=== PATIENT | male | born 1980 | race Caucasian/White ===

== ENCOUNTER 2017-06-15 05:27 | Day surgery (SDC) | payer BC, OTHER ==
[~2017-06-15] VITALS: Ht 188 cm; Wt 102.1 kg
--- NOTE | ~2017-06-15 | O ---
[facility] [place] [address] OPERATIVE REPORT Name: MADAY CHATTERJEE Room #: 150-11 [facility] M.R.#: [id number] Admission: 06/15/17 Attend Phys: Pk Hoover MD Discharge: Date of : 84 Report #: [id number] THIS REPORT FOR: //name// CC: FAM unknown Pk Hoover DATE OF SERVICE: 06/15/2017 PREOPERATIVE DIAGNOSES: Left knee pain with possible chondral injury, lateral femoral condyle. POSTOPERATIVE DIAGNOSES: Left knee lateral femoral condyle articular cartilage delamination, full thickness. PROCEDURE: Left knee arthroscopy with microfracture of the lateral femoral condyle area, 8 x 10 mm. SURGEON: Pk Hoover MD PREMIX OPERATOR CONCENTRATE: Taryn Burden PA-C ANESTHESIA: LMA. TOURNIQUET TIME: 30 minutes. COMPLICATIONS: None. SPECIMENS: None. CONDITION UPON LEAVING THE OPERATING ROOM: Stable. INDICATIONS FOR PROCEDURE: The patient is a 36-year-old gentleman who has had lateral patellofemoral pain for several years. He has had 2 MRI scans that showed edema of the lateral femoral condyle with relatively normal chondral cartilage overlying this area. He had failed conservative treatment for this including focused physical therapy and after discussion with him, he elected for diagnostic left knee arthroscopy with possible chondroplasty versus microfracture of the lateral femoral condyle. DESCRIPTION OF PROCEDURE: Risks, benefits, alternatives, complications were discussed in detail with the patient including but not limited to risk of anesthesia, risk of damage to nerves, arteries, blood vessels, risk for infection, bleeding, risk for continued knee pain and need for reoperation. Informed consent was obtained from the patient. Left knee was appropriately marked in the preoperative holding area. IV Ancef was given for preoperative antibiotics. He was brought to the operating room and placed in supine position [address] [address] OPERATIVE REPORT Name: MADAY CHATTERJEE Room #: 150-11 [facility] Jennifer#: [id number] Admission: 06/15/17 Attend Phys: Pk Hoover MD Discharge: Date of : 84 Report #: [id number] on operating room table. LMA anesthesia was induced without complication. Tourniquet was placed on left thigh. Left lower extremity was prepped and draped in normal sterile fashion. Timeout was performed properly identifying the patient and procedure as well as instrumentation. All in the operating room were in agreement. Left lower extremity was exsanguinated, tourniquet was inflated. Tourniquet time was 30 minutes. Standard anterolateral portal was established with an 11 blade through the skin. Arthroscope was introduced into the patellofemoral compartment and diagnostic arthroscopy was undertaken. Patellofemoral compartment was visualized and found to be without pathology. The medial gutter was visualized and found to be without pathology. Medial compartment was visualized and medial portal was established under arthroscopic visualization. Probe was introduced in the medial compartment and there was noted to be an intact medial meniscus with articular cartilage intact over the femur and tibia. Notch was visualized and found to have an intact anterior cruciate ligament. Lateral compartment was visualized and found to have an intact lateral meniscus as well as articular cartilage on the weightbearing surfaces of the lateral femoral condyle and lateral tibial plateau. Scope was then placed back in the patellofemoral compartment and the cartilage in the lateral femoral condyle adjacent to the trochlear groove had an abnormal appearance to it and upon probing, it was noted to be a delaminated from the underlying bone and it was obviously unstable. It was decided to take this unstable abnormal cartilage down to the subchondral bone and this was performed with an arthroscopic biter as well as arthroscopic shaver. The bone was debrided to subchondral bone and there was excellent stable rim of articular cartilage that was adherent to the bone. Microfracture of this area was then performed using a Nanofracture device. This area was 8 x 10 mm in size. The pressure was taken off the pump and there was excellent bleeding from the microfracture holes. All fluid was allowed to drain from the knee. The knee was injected with 5 mL of 0.5% Marcaine. Incision was closed with 3-0 nylon. Soft dressing of Adaptic, 4 x 4, Webril, Rohan wrap were applied. The patient tolerated this procedure well and went to the recovery room under the care of anesthesia postoperatively. <ELECTRONICALLY SIGNED> By: Pk Hoover MD 06/17/17 0728 [id number] Pk Hoover MD /nt
[2017-06-15 09:51] VITALS: BP 125/79
[2017-06-15] MEDS ORDERED: HYDROCODONE-AP1 EAC6 PO (11:39)
[2017-06-15 12:01] VITALS: BP 125/79
== END 2017-06-15 12:43 | disposition home or self-care (01) ==
LOC: OR 05:27 → TBA 05:27 → OR 10:01
DX: M94.8X6 Other specified disorders of cartilage, lower leg (principal); Z98.890 Other specified postprocedural states; Z79.891 Long term (current) use of opiate analgesic
CPT/HCPCS: 50010; 50101; 50405; 50991; 50992; 51038; 53337; 54170; 56526; 62110; 62900; 70005